=== PATIENT | male | born 1990 ===

== ENCOUNTER 2018-06-20 17:20 | Emergency (ER) | payer SELFPAY ==
[2018-06-20 17:43] VITALS: BP 134/82; RESP 20; TEMP 98.8; O2SAT 98
--- NOTE | 2018-06-20 18:14 | C.PDOC ---
History Of Present Illness 27 year old male w/PMHx of HIV , panic attacks BIBA for evaluation of gradual onset of chest tightness associated with palpitations and generalized body tingling developed a few hours [employer]. Patient admits to having similar symptoms in the past consistent with his panic attacks, but states were "not as bad." Patient reports, moderate improvement of symptoms with time , since initial onset. Otherwise, pt Denies fever, chills, recent illness, headache, dizziness, neck pain, cough, shortness of breath, dyspnea, diaphoresis, abd. pain, vomiting, diarrhea, UTI sx. Pt denies cocaine use. Ambulatory in ED, appears comfortable, not in any apparent distress Time Seen by Provider: 06/20/18 17:58 Chief Complaint (Nursing): Anxiety History Per: Patient History/Exam Limitations: no limitations Onset/Duration Of Symptoms: Hrs Current Symptoms Are (Timing): Still Present Past Medical History Reviewed: Historical Data, Nursing Documentation, Vital Signs Vital Signs: Last Vital Signs Temp 98.8 F 06/20/18 17:38 Pulse 99 H 06/20/18 17:38 Resp 20 06/20/18 17:38 BP 134/82 06/20/18 17:38 Pulse Ox 98 06/20/18 17:38 - Medical History PMH: Anxiety, Arthritis (mild, low back) Surgical History: Tonsillectomy Family History: States: No Known Family Hx - Social History Hx Alcohol Use: Yes Hx Substance Use: Yes - Immunization History Hx Tetanus Toxoid Vaccination: No Hx Influenza Vaccination: No Hx Pneumococcal Vaccination: No Review Of Systems Except As Marked, All Systems Reviewed And Found Negative. Constitutional: Negative for: Fever, Chills Cardiovascular: Positive for: Chest Pain (Chest tighntess), Palpitations Respiratory: Negative for: Cough, Shortness of Breath Gastrointestinal: Negative for: Nausea, Vomiting Musculoskeletal: Positive for: Other (Generalized body tingling.) Physical Exam - Physical Exam Appears: Well, Non-toxic, No Acute Distress Skin: Normal Color, Warm, Dry, No Rash Head: Normacephalic Eye(s): bilateral: PERRL Ear(s): Bilateral: Normal Nose: No Flaring, No Discharge Oral Mucosa: Moist Throat: No Erythema, No Drooling Neck: Trachea Midline, Supple Cardiovascular: Rhythm Regular, No Friction Rub, No Murmur, No JVD, Other ((-) carotid bruits B/L) Respiratory: No Decreased Breath Sounds, No Accessory Muscle Use, No Stridor, No Wheezing Gastrointestinal/Abdominal: Soft, No Tenderness, No Distention, No Guarding Back: No CVA Tenderness Extremity: Normal ROM, No Pedal Edema, No Deformity, No Swelling Neurological/Psych: Oriented x3, Normal Speech, Normal Motor, Normal Sensation, Normal Reflexes ED Course And Treatment ECG: Interpreted By Me, Viewed By Me (and ED attending) ECG Rhythm: Sinus Rhythm ECG Interpretation: Normal Interpretation Of ECG: SR@69/min, NAD, no acute T wave or ST-T changes O2 Sat by Pulse Oximetry: 98 (RA) Pulse Ox Interpretation: Normal - Radiology CXR: Interpreted by Me, Viewed By Me CXR Interpretation: Yes: No Acute Disease Progress Note: On re-eval, pt is afebrile, hemodynamicaly stable. Non-toxic, coforatble in ED, denies CP, SOB, palpitation at present time. PulsEOx 98% RA. ENT: no acute findings. neck: Supple, (-) JVD, (-) carotid bruits B/L. Lungs: CTA B/L, BS equal B/L. CVS: (+)S1S2, reg, (-) murmur. Abd: benign, (-) guarding, (-) rebound. Back: (-) CVA tenderness. Neurologicaly intact. CXR, EKG- normal study. Pt has clinical findings c/w chest pain, palpitation, hx of anxiety. case discussed with ED attendibf, CXR, EKG review, priya further work up recommend at present time. Pt advised. ref. to f/u with PMD, Card in 2-3 days for re-eval. return to ED if any worsening or new changes. Disposition Counseled Patient/Family Regarding: Studies Performed, Diagnosis, Need For Followup - Disposition Referrals: Dipika Mahoney APN [Advanced Practice Nurse] - Disposition: HOME/ ROUTINE Disposition Time: 18:23 Condition: STABLE Additional Instructions: Follow up with PMD, Cardiology in 2-3 days for re-evaluation. return to ED if any worsening or new changes. Instructions: Chest Pain, Anxiety, Adult (DC) Forms: [employer] (Faroese) - Clinical Impression Clinical Impression: Chest pain - PA / LINEN CLERK / Resident Statement MD/DO has reviewed & agrees with the documentation as recorded. - Scribe Statement The provider has reviewed the documentation as recorded by the Denisibe Trent [place] All medical record entries made by the Estee were at my direction and personally dictated by me. I have reviewed the chart and agree that the record accurately reflects my personal performance of the history, physical exam, medical decision making, and the department course for this patient. I have also personally directed, reviewed, and agree with the discharge instructions and disposition.
[2018-06-20 18:25] VITALS: PULSE 64
--- NOTE | 2018-06-20 18:30 | RAD ---
Date of service: 06/20/2018 HISTORY: Cough COMPARISON: No prior. TECHNIQUE: Chest PA and lateral FINDINGS: LUNGS: No active pulmonary disease. PLEURA: No significant pleural effusion identified. No pneumothorax apparent. CARDIOVASCULAR: No aortic atherosclerotic calcification present. Normal cardiac size. No pulmonary vascular congestion. OSSEOUS STRUCTURES: No significant abnormalities. VISUALIZED UPPER ABDOMEN: Normal. OTHER FINDINGS: None. IMPRESSION: No active disease. Concordant results with the preliminary interpretation rendered by the emergency department physician procedure.
--- NOTE | 2018-06-24 20:43 | CARD ---
APPROVED REPORT Date of service: 06/20/2018 EKG Measurement Heart [id number] <Conclusion> Normal sinus rhythm with sinus arrhythmia Normal ECG
== END 2018-06-20 18:45 | disposition home or self-care (01) ==
LOC: C.ER 17:20
DX: R07.9 Chest pain, unspecified (principal)